=== PATIENT | male | born 1980 | race African-American/Black ===

== ENCOUNTER 2017-05-03 11:07 | Emergency (ER) | payer BC ==
[~2017-05-03] VITALS: Ht 180.3 cm; Wt 99.0 kg
[2017-05-03 11:41] LABS: BASO % 1 % (0-3); EOS % 0 % (0-3); HEMATOCRIT 45.4 % (39.0-53.0); HEMOGLOBIN 15.2 g/dL (13.0-17.5); LYMPH # 0.9 x10^3/uL (1.0-4.8); LYMPH % 14 % (24-48); MEAN CORPUSCULAR HEMOGLOBIN 27 pg (25-35); MEAN CORPUSCULAR HGB CONC 34 g/dL (31-37); MEAN CORPUSCULAR VOLUME 79 fL (79-100); MONO # 0.6 x10^3/uL (0.0-1.1); MONO % 10 % (0-9); NEUT # 4.8 x10^3uL (1.8-7.7); NEUT % 75 % (31-73); PLATELET COUNT 318 x10^3/uL (140-400); RED BLOOD COUNT 5.74 x10^6/uL (4.30-5.70); RED CELL DISTRIBUTION WIDTH 13.8 % (11.5-14.5); WHITE BLOOD COUNT 6.4 x10^3/uL (4.0-11.0)
[2017-05-03] MEDS: NITROGLYCERIN SUBLINGUAL 0.4 MG BOTTLE OF 25. SL PRN ×2 (11:42→12:04)
--- NOTE | 2017-05-03 11:44 | RAD ---
Exam performed: One view chest. Indication: Chest pain since last night Date of Service: 05/03/2017 1:16 PM Comparison: None available. Single AP upright portable view chest findings: Cardiomediastinal silhouette is within limits of normal. No acute infiltrates, effusion or pneumothorax is detected. The bony structures are normal. Impression: No acute cardiopulmonary process is detected.
[2017-05-03] MEDS ORDERED: ASPIRIN 81 MG TAB.CHEW PO ONE (11:50)
[2017-05-03] MEDS ORDERED: KETOROLAC 30 MG/ML VIAL. ONE (12:01)
[2017-05-03 12:17] LABS: CREATINE KINASE 298 U/L (39-308); LIPASE 46 U/L (73-393)
[2017-05-03 12:45] LABS: HEMOGLOBIN ISTAT 16.7 gm/dL; POTASSIUM ISTAT 3.8 mmol/L (3.5-5.0)
[2017-05-03 13:36] LABS: BARBITURATES NEG (NEG); BENZODIAZEPINES NEG (NEG); CANNABINOIDS NEG (NEG); COCAINE NEG (NEG); METHADONE NEG (NEG); OPIATES NEG (NEG); PHENCYCLIDINE NEG (NEG)
[2017-05-03 13:37] LABS: AMPHETAMINE/METHAMPHETAMINE NEG (NEG)
[2017-05-03 13:38] LABS: BACTERIA,URINE 0 /HPF (0-FEW); BILIRUBIN,URINE NEG (NEG); CLARITY,URINE CLEAR; COLOR,URINE YELLOW; GLUCOSE,URINE NEG (NEG); NITRITE,URINE NEG (NEG); RBC,URINE 0 /HPF (0-2); UROBILINOGEN,URINE 0.2 mg/dL (0.2 mg/dL); WBC,URINE 0 /HPF (0-4)
--- NOTE | 2017-05-03 14:08 | PHYS DOC ---
General Chief Complaint: CHEST PAIN Stated Complaint: CHEST PAIN Time Seen by MD: 11:09 Source: patient Exam Limitations: no limitations Problems: History of Present Illness Initial Comments Patient is a 36-year-old male who comes to the ED complaining of chest pain. Patient states that he first noticed left-sided chest discomfort described as a pressure at 1 AM today. He states he tossed and turned throughout the night and had trouble getting comfortable, he states that he has no progression of the discomfort and has had some nonspecific left arm tingling. He denies nausea vomiting diaphoresis shortness of breath or neck discomfort. Patient denies history of hypertension diabetes hyperlipidemia he has never been a smoker, he denies any known family history of coronary artery disease. He is noted to be hypertensive on arrival but has no prior diagnosis he states he has no family history of hypertension. His chest discomfort did improve somewhat from a 7-85, this was concomitant with his blood pressure improving from 170/110-130/70. 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 No prior cardiac workup. No prior elevated blood pressure at these physicals. Timing/Duration: constant Severity: moderate Modifying Factors: improves with other Associated Symptoms: chest pain, other Allergies: Coded Allergies: No Known Drug Allergies (Unverified , 05/03/17) Past Medical History Medical History: no pertinent history Surgical History: no surgical history Social History Smoker: non-smoker Alcohol: none Drugs: none Review of Systems Constitutional: denies chills, denies fever, denies malaise Respiratory: denies cough, denies shortness of breath, denies wheezing Cardiovascular: chest pain, denies edema, denies palpitations, denies syncope Gastrointestinal: denies abdominal pain, denies nausea, denies vomiting Musculoskeletal: see HPI, denies back pain, denies joint swelling, denies neck pain Psychiatric/Neurological: denies headache, denies numbness, denies paresthesia Physical Exam General Appearance: WD/WN, no apparent distress Eyes: bilateral eye normal inspection, bilateral eye PERRL, bilateral eye EOMI Ear, Nose, Throat: hearing grossly normal, normal ENT inspection, normal pharynx Neck: non-tender, supple Respiratory: chest non-tender, normal breath sounds, no respiratory distress Cardiovascular: normal peripheral pulses, regular rate, rhythm Gastrointestinal: non tender, soft Back: no CVA tenderness, no vertebral tenderness Extremities: non-tender, normal inspection, no pedal edema 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 Chest AP: No acute cardiopulmonary process noted, interpreted by me. Reassuring lab workup in the emergency department. A troponin was repeated at 1: 30 which is greater than 12 hours from symptom onset. I discussed possibility that he has hypertension, I discussed the blood pressure log and establishing with a primary care doctor in the next 1-2 days. He was given a list of local doctors who take walk-in appointments. He was also advised that his creatine kinase was high normal but was normal, I did not know whether it is trending up or down so I recommended it be retested when he sees his new doctor in 1-2 days. I also advised him that he may need an outpatient nonemergent stress test or echocardiogram. He expressed agreement and understanding with the treatment plan and agrees to follow-up with a walk-in physician in the next 2 days, his and 2 daughters arrive during his ED course and his states she will encourage him to follow-up as directed as well. I discussed signs and symptoms to monitor and indications for return they expressed agreement and understanding. Departure Time of Disposition: 14:06 Disposition: 01 HOME, SELF-CARE Diagnosis: chest pain, elev BP w/o HTN Condition: STABLE Patient Instructions: Chest Pain (Nonspecific), [id number], Form - Blood Pressure Record Sheet Additional Instructions: Diagnoses: Elevated BP w/o HTN Elevated CK w/o rhabdomyolysis Off work thru 05/05, note given. Aspirin 81mg daily Keep a written blood pressure log, take with you to your follow up appointment. You will need to follow up with a doctor in 1-2 days for recheck. As you do not have one ED staff can provide you a list of doctors to take walk- in patients. Return to ED with new or changing symptoms. ELIU RASHEED DO May 03, 2017 14:08
--- NOTE | 2017-05-03 14:44 | EKG ---
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
[2017-05-03 14:50] VITALS: BP 138/95
== END 2017-05-03 15:09 | disposition home or self-care (01) ==
LOC: ER 11:07
DX: R07.89 Other chest pain (principal); R03.0 Elevated blood-pressure reading, without diagnosis of hypertension; R74.8 Abnormal levels of other serum enzymes
CPT/HCPCS: 36415; 71010; 80047; 80307; 81001; 82550; 83690; 83880; 84484; 85025; 85379; 93005; 99285-25; G0479

== ENCOUNTER → 2017-05-05 | Outpatient (CLI) | payer BC ==
[2017-05-03 14:50] VITALS: BP 138/95
== END | disposition home or self-care (01) ==
LOC: LAB 11:14
PROVIDERS: ATTEND Internal Medicine Cardiovascular Disease
DX: R07.9 Chest pain, unspecified (principal)
CPT/HCPCS: 80061